=== PATIENT | male | born 1990 | race Caucasian/White ===

== ENCOUNTER 2019-06-08 20:53 | Emergency (ER) | payer SELFPAY ==
[~2019-06-08] VITALS: Ht 175.3 cm; Wt 65.0 kg
--- NOTE | 2019-06-08 21:03 | PHYS DOC ---
Past History Past Medical History: Sciatica Adult General Chief Complaint Chief Complaint: ".. I ve had back problems.. before .. when I was in the .... It is always here on the Rt... lower... same spot..but I ve been moving into a new place..and probably over did it... " HPI HPI Patient is a 29 year old male who presents with above hx and complaints right lower bar muscle spasms and pain. Patient has history of past sciatica on right. Patient has had problems with lower back pain since service. Patient has [place] [facility] with excessive lifting the last couple days. Patient has findings of increased pain with straight leg lift on right. Pain does seem to travel down right sciatic nerve . Patient moved to [facility] from [facility]. Patient denies any problems with defecation or urination. Patient denies any fever or chills. Patient denies any history cancer. Patient denies any immunosuppression. Patient denies any history of IV drug use. Patient normally follows at [facility]. His primary care is Dr.L Landry. Review of Systems Review of Systems Constitutional: Denies fever or chills [] Eyes: Denies change in visual acuity, redness, or eye pain [] HENT: Denies nasal congestion or sore throat [] Respiratory: Denies cough or shortness of breath [] Cardiovascular: No additional information not addressed in HPI [] GI: Denies abdominal pain, nausea, vomiting, bloody stools or diarrhea [] : Denies dysuria or hematuria [] Musculoskeletal: Complains of right lumbar back pain Integument: Denies rash or skin lesions [] Neurologic: Denies headache, focal weakness or sensory changes [] Endocrine: Denies polyuria or polydipsia [] All other systems were reviewed and found to be within normal limits, except as documented in this note. Family History Family History Noncontributory Current Medications Current Medications See nursing for home meds Allergies Allergies No known drug allergies Physical Exam Physical Exam Constitutional: Well developed, well nourished, no acute distress, non-toxic appearance. [] HENT: Normocephalic, atraumatic, bilateral external ears normal, oropharynx moist, no oral exudates, nose normal. [place] Eyes: PERRLA, EOMI, conjunctiva normal, no discharge. [] Neck: Normal range of motion, no tenderness, supple, no stridor. [] Cardiovascular:Heart rate regular rhythm, no murmur [] Lungs & Thorax: Bilateral breath sounds equal at apexes on auscultation [] Abdomen: Bowel sounds normal, soft, no tenderness, no masses, no pulsatile masses. No groin or saddle sensation loss. Circumcised male. Skin: Warm, dry, no erythema, no rash. [] Back: Right lumbar muscle spasm and tenderness, no midline tenderness on percussion, no CVA tenderness. [] Pain appears to follow sciatic roots on right. Extremities: No tenderness, no cyanosis, no clubbing, ROM intact, no edema. [] Neurologic: Alert and oriented X 3, normal motor function, normal sensory function, no focal deficits noted. []DTR +2 at patella. Psychologic: Affect anxious, judgement normal, mood normal. [] EKG EKG [] Radiology/Procedures Radiology/Procedures X-rays deferred at this time-per patient[] Course & Med Decision Making Course & Med Decision Making Pertinent Labs and Imaging studies reviewed. (See chart for details) Patient use ice packs as needed for the next 3 days. After 3 days if no reinjury may advance to moist heat. Patient take Tylenol and ibuprofen for pain. Patient take Flexeril 10 mg up 3 times a day for muscle spasms. Patient take Vicoprofen up to 4 times a day. Return of any concerns. Must follow-up primary care. Should limit lifting 20 pounds for the next several days. Impression: 1. Low back pain-sciatica 2. Over use/back strain [] Dragon Disclaimer Dragon Disclaimer This electronic medical record was generated, in whole or in part, using a voice recognition dictation system. Departure Departure: Disposition: 01 HOME/RESIDENCE PRIOR TO ADM Condition: STABLE Referrals: TRENA LANDRY MD (PCP) Scripts Cyclobenzaprine Hcl (CYCLOBENZAPRINE HCL) 10 Mg Tablet 10 MG PO TID PRN PRN for spasms, #30 TAB Prov: SHAILA HERNANDEZ MD 06/08/19 Hydrocodone/Ibuprofen (HYDROCODONE-IBUPROFEN 7.5-200 ) 1 Each Tablet 1 TAB PO PRN Q6HRS PRN for PAIN, #30 TAB 0 Refills Prov: SHAILA HERNANDEZ MD 06/08/19 Dragon Disclaimer This chart was dictated in whole or in part using Voice Recognition software in a busy, high-work load, and often noisy Emergency Department environment. It may contain unintended and wholly unrecognized errors or omissions. SHAILA HERNANDEZ MD Jun 08, 2019 21:03
[2019-06-08] MEDS ORDERED: CYCL-331 PO (22:37)
[2019-06-08] MEDS ORDERED: HYDR-1179 PO (22:37)
[2019-06-08] MEDS ORDERED: KETOROLAC 60 MG/2 ML VIAL. IM ONE ×2 (22:45→22:50)
[2019-06-08] MEDS ORDERED: MORPHINE SULFATE 10 MG/ML SYRINGE. SQ ONE (22:45)
[2019-06-08] MEDS ORDERED: ORPHENADRINE CITRATE 60 MG/2 ML VIAL. IM ONE (22:45)
[2019-06-08] MEDS ORDERED: ORPHENADRINE CITRATE 60 MG/2 ML VIAL. ONE (22:50)
[2019-06-08] MEDS ORDERED: MORPHINE SULFATE 10 MG/ML SYRINGE. ONE (22:51)
[2019-06-08 22:59] LABS: BARBITURATES NEG (NEG); BENZODIAZEPINES NEG (NEG); CANNABINOIDS NEG (NEG); COCAINE NEG (NEG); METHADONE NEG (NEG); OPIATES NEG (NEG); PHENCYCLIDINE NEG (NEG)
[2019-06-08 23:00] VITALS: BP 110/64
[2019-06-08 23:00] LABS: AMPHETAMINE/METHAMPHETAMINE NEG (NEG)
[2019-06-08 23:04] LABS: BACTERIA,URINE 0 /HPF (0-FEW); BILIRUBIN,URINE NEG (NEG); CLARITY,URINE CLEAR; COLOR,URINE YELLOW; GLUCOSE,URINE NEG (NEG); NITRITE,URINE NEG (NEG); RBC,URINE 0 /HPF (0-2); UROBILINOGEN,URINE 0.2 mg/dL (0.2 mg/dL); WBC,URINE 0 /HPF (0-4)
== END 2019-06-08 23:00 | disposition home or self-care (01) ==
LOC: ER 20:53
DX: M54.42 Lumbago with sciatica, left side (principal)
CPT/HCPCS: 36415; 80307; 81001; 96372; 99284; J1885; J2270; J2360

== ENCOUNTER 2019-06-22 22:41 | Emergency (ER) | payer BC ==
[~2019-06-22] VITALS: Ht 175.3 cm; Wt 65.0 kg
[~2019-06-22 22:41] MED LIST: CYCL-331 PO; HYDR-1179 PO
[2019-06-22 22:59] VITALS: BP 115/85
[2019-06-22] MEDS ORDERED: CYCL-331 PO (23:24)
[2019-06-22] MEDS ORDERED: HYDR-3165 PO (23:24)
[2019-06-22] MEDS ORDERED: PRED-220 PO (23:24)
--- NOTE | 2019-06-22 23:25 | PHYS DOC ---
Past History Past Medical History: Sciatica Additional Past Medical Histor: tinninitis; chronic back issues Past Surgical History: Other Additional Past Surgical Histo: laser eye surgery for glaucoma; rt shoulder; rt wrist Alcohol Use: Rarely Drug Use: None Adult General Chief Complaint Chief Complaint: BACK PAIN OR INJURY HPI HPI 29-year-old male returns emergency room with right lower back pain. 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 He does a lot of heavy lifting and twisting. He had an exceptionally hard day at work yesterday and believes that he tweaked something in his back. He has had tightness and pain since he got home after work. He was seen in this emergency room by my colleague 2 weeks ago for a similar complaint. Patient admits that he got better and then has reinjured himself. He states that he has made an appointment with his primary care physician for after the holiday. He denies any falls or direct trauma. He has had a history of low back pain from previous service. He denies numbness, tingling, altered sensation. No symptoms down his legs. Review of Systems Review of Systems Constitutional: Denies fever or chills [] Eyes: Denies change in visual acuity, redness, or eye pain [] HENT: Denies nasal congestion or sore throat [] Respiratory: Denies cough or shortness of breath [] Cardiovascular: No additional information not addressed in HPI [] GI: Denies abdominal pain, nausea, vomiting, bloody stools or diarrhea [] : Denies dysuria or hematuria [] Musculoskeletal: Right-sided low back pain[] Integument: Denies rash or skin lesions [] Neurologic: Denies headache, focal weakness or sensory changes [] Endocrine: Denies polyuria or polydipsia [] All other systems were reviewed and found to be within normal limits, except as documented in this note. Allergies Allergies Allergies Coded Allergies Type Severity Reaction Last Updated Verified No Known Drug Allergies 06/08/19 No Physical Exam Physical Exam Constitutional: Well developed, well nourished, no acute distress, non-toxic appearance. [] HENT: Normocephalic, atraumatic, bilateral external ears normal, oropharynx moist, no oral exudates, nose normal. [] Eyes: PERRLA, EOMI, conjunctiva normal, no discharge. [] Neck: Normal range of motion, no tenderness, supple, no stridor. [] Cardiovascular:Heart rate regular rhythm, no murmur [] Lungs & Thorax: Bilateral breath sounds clear to auscultation [] Abdomen: Bowel sounds normal, soft, no tenderness, no masses, no pulsatile masses. [] Skin: Warm, dry, no erythema, no rash. [] Back: Moderate to severe lumbar paraspinal muscle spasm on the right with mild to moderate tenderness to palpation.[] Extremities: No tenderness, no cyanosis, no clubbing, ROM intact, no edema. [] Neurologic: Alert and oriented X 3, normal motor function, normal sensory function, no focal deficits noted. [] Psychologic: Affect normal, judgement normal, mood normal. [] Current Patient Data Vital Signs Vital Signs Date Time Temp Pulse Resp B/P (MAP) Pulse Ox O2 Delivery O2 Flow Rate FiO2 06/22/19 22:59 97.9 80 18 97 Room Air EKG EKG [] Radiology/Procedures Radiology/Procedures [] Course & Med Decision Making Course & Med Decision Making Pertinent Labs and Imaging studies reviewed. (See chart for details) The patient does appear to be having significant spasms of his paraspinal muscles. I have looked him up in the database and he has had 3 prescriptions within the last couple of months. The patient admitted as such. I have stressed to him that the emergency room will not be able to give him medications like this in the future she needs to get these medications from one source, his primary care physician. Patient states verbal understanding. I will discharge him with prednisone for 3 days, Flexeril, and 10 [place] 5/325. He is stable for discharge at this time. [] Dragon Disclaimer Dragon Disclaimer This electronic medical record was generated, in whole or in part, using a voice recognition dictation system. Departure Departure: Impression: Primary Impression: Lumbar back sprain Disposition: 01 HOME, SELF-CARE Condition: STABLE Referrals: TRENA LOMBARDI MD (PCP) Patient Instructions: Low Back Strain with [facility] Scripts Prednisone (PREDNISONE) 10 Mg Tablet 50 MG PO DAILY for low back pain for 3 Days, #15 TAB Prov: VICTOR MANUEL MITCHELL DO 06/22/19 Hydrocodone Bit/Acetaminophen (NORCO 5-325 TABLET) 1 Each Tablet 1 TAB PO PRN Q6HRS PRN for PAIN, #10 TAB 0 Refills Prov: VICTOR MANUEL MITCHELL DO 06/22/19 Cyclobenzaprine Hcl (CYCLOBENZAPRINE HCL) 10 Mg Tablet 1 TAB PO TID PRN for MUSCLE SPASMS, #30 TAB Prov: VICTOR MANUEL MITCHELL DO 06/22/19 Problem Qualifiers Primary Impression: Lumbar back sprain Encounter type: initial encounter Qualified Codes: S33.5XXA - Sprain of ligaments of lumbar spine, initial encounter VICTOR MANUEL MITCHELL DO Jun 22, 2019 23:25
[2019-06-22] MEDS ORDERED: CYCLOBENZAPRINE 10 MG TABLET. ONE (23:27)
[2019-06-22] MEDS ORDERED: predniSONE 20 MG TABLET ONE (23:27)
[2019-06-22] MEDS ORDERED: predniSONE 20 MG TABLET PO ONE (23:30)
[2019-06-22] MEDS ORDERED: CYCLOBENZAPRINE 10 MG TABLET. PO ONE (23:30)
== END 2019-06-22 23:32 | disposition home or self-care (01) ==
LOC: ER 22:41
DX: S33.5XXA Sprain of ligaments of lumbar spine, initial encounter (principal); X50.9XXA Other and unspecified overexertion or strenuous movements or postures, initial encounter; Y93.89 Activity, other specified; Y92.89 Other specified places as the place of occurrence of the external cause; Y99.0 Civilian activity done for income or pay
CPT/HCPCS: 99283; J7512

== ENCOUNTER 2019-07-27 19:54 | Emergency (ER) | payer SELFPAY ==
[~2019-07-27] VITALS: Ht 175.3 cm; Wt 67.0 kg
[~2019-07-27 19:54] MED LIST changes: +HYDR-3165 PO; +PRED-220 PO
--- NOTE | 2019-07-27 20:06 | PHYS DOC ---
Past History Past Medical History: Sciatica Additional Past Medical Histor: tinninitis; chronic back issues Past Surgical History: Other Additional Past Surgical Histo: laser eye surgery for glaucoma; rt shoulder; rt wrist Alcohol Use: Rarely Drug Use: None Adult General Chief Complaint Chief Complaint: BACK PAIN OR INJURY".. I was changing a tire on my SUV yesterday and I think I twisted my back... Here on the right lower lumbar area HPI HPI Patient is a 29 year old male who presents with above hx and complaints of lumbar back pain. Patient denies any history immunosuppression. Patient denies any history of problems with urination or defecation. No history of cancer. History of fevers. Pain started acutely after changing tires on his SUV Patient normally [facility]. Pain is exacerbated by straight leg lift on right. DTRs are +2 patella. Review of Systems Review of Systems Constitutional: Denies fever or chills [] Eyes: Denies change in visual acuity, redness, or eye pain [] HENT: Denies nasal congestion or sore throat [] Respiratory: Denies cough or shortness of breath [] Cardiovascular: No additional information not addressed in HPI [] GI: Denies abdominal pain, nausea, vomiting, bloody stools or diarrhea [] : Denies dysuria or hematuria [] Musculoskeletal: Complaints of lumbar sacral back pain Integument: Denies rash or skin lesions [] Neurologic: Denies headache, focal weakness or sensory changes [] Endocrine: Denies polyuria or polydipsia [] All other systems were reviewed and found to be within normal limits, except as documented in this note. Family History Family History Noncontributory Current Medications Current Medications See nursing for home meds Allergies Allergies Allergies Coded Allergies Type Severity Reaction Last Updated Verified No Known Drug Allergies 06/08/19 No Physical Exam Physical Exam Constitutional: Well developed, well nourished, in moderate acute distress, non- toxic appearance. [] HENT: Normocephalic, atraumatic, bilateral external ears normal, oropharynx moist, no oral exudates, nose normal. [] Eyes: PERRLA, EOMI, conjunctiva normal, no discharge. [] Neck: Normal range of motion, no tenderness, supple, no stridor. [] Cardiovascular:Heart rate regular rhythm, no murmur [] Lungs & Thorax: Bilateral breath sounds clear to auscultation [] Abdomen: Bowel sounds normal, soft, no tenderness, no masses, no pulsatile masses. [] Findings rectal exam but no reports of suicidal loss in the groin. Skin: Warm, dry, no erythema, no rash. [] Back: Marked lumbar sacral muscle spasm localized more to the right. No midline tenderness on percussion. Straight leg lift on right exacerbates pain. Pain seems to follow the course of the sciatic nerve. Extremities: No tenderness, no cyanosis, no clubbing, ROM intact, no edema. [] No cording noted in legs. Neurologic: Alert and oriented X 3, normal motor function, normal sensory function, no focal deficits noted. []DTRs +2 at patella. Is ambulatory. Psychologic: Affect anxious, judgement normal, mood normal. [] EKG EKG [] Radiology/Procedures Radiology/Procedures [][address] [address] IMAGING REPORT Signed PATIENT: ENRIQUE MARS ACCOUNT: [id number] : 1990 LOCATION: ER AGE: 29 SEX: M EXAM STATUS: REG ER ORD. PHYSICIAN: SHAILA HERNANDEZ MD REASON: pain - rt sciatica, SPASMS PROCEDURE: CT LUMBAR SPINE WO CONTRAST CT LUMBAR SPINE WO CONTRAST Date: 07/27/2019 8:31 PM Indication: Spasms, right sciatica, pain Comparison: None. Technique: Helical CT images of the lumbar spine were obtained without contrast. Coronal and sagittal reformatted images were also performed. One or more of the following dose reduction techniques were utilized: Automated exposure control (AEC), Adjustment of mA and/or kV according to patient size, Use of iterative reconstruction technique such as ASiR, CT scan done according to ALARA and image gently/image wisely. Findings: The lumbar spine is normally aligned. No acute fracture. Vertebral body heights are maintained without compression deformity. Multilevel minimal disc bulges. No aggressive lytic or blastic osseous lesion. No significant spinal canal stenosis or neuroforaminal narrowing. No soft tissue abnormality within the visualized abdomen or pelvis. The visualized abdominal aorta is normal caliber. IMPRESSION: 1. No acute osseous abnormality of the lumbar spine. 2. Few mild disc bulges without significant spinal canal stenosis or neural foraminal narrowing. If radiculopathy persists, MRI could be considered. Electronically signed by: Ivan Thomason MD (07/27/2019 9:12 PM) [facility] DICTATED AND SIGNED BY: IVAN THOMASON MD DATE: 07/27/192111 CC: SHAILA HERNANDEZ MD; TRENA LOMBARDI MD ~ Course & Med Decision Making Course & Med Decision Making Pertinent Labs and Imaging studies reviewed. (See chart for details) Patient use ice packs as needed for the next 3 days. No moist heat until after 3 days. An no reinjury. Take Tylenol and ibuprofen for pain. For marked pain may take Vicoprofen up 4 times a day. Take Flexeril 10 mg up to 3 times a day for muscle spasms. If no improvement of back pain may need MRI. Follow-up with PA. Return if any concerns. Impression- 1. Muscle strain 2. Sciatica 3. Mild disc bulging [] Dragon Disclaimer Dragon Disclaimer This electronic medical record was generated, in whole or in part, using a voice recognition dictation system. Departure Departure: Disposition: 01 HOME/RESIDENCE PRIOR TO ADM Condition: STABLE Referrals: TRENA LOMBARDI MD (PCP) Scripts Cyclobenzaprine Hcl (CYCLOBENZAPRINE HCL) 10 Mg Tablet 10 MG PO tidprn for spasms, #30 TAB Prov: SHAILA HERNANDEZ MD 07/27/19 Hydrocodone/Ibuprofen (HYDROCODONE-IBUPROFEN 7.5-200 ) 1 Each Tablet 1 TAB PO PRN Q6HRS PRN for PAIN, #30 TAB 0 Refills Prov: SHAILA HERNANDEZ MD 07/27/19 Dragon Disclaimer This chart was dictated in whole or in part using Voice Recognition software in a busy, high-work load, and often noisy Emergency Department environment. It may contain unintended and wholly unrecognized errors or omissions. SHAILA HERNANDEZ MD Jul 27, 2019 20:06
[2019-07-27] MEDS ORDERED: HYDR-1179 PO (20:29)
[2019-07-27] MEDS ORDERED: CYCL-331 PO (20:29)
[2019-07-27] MEDS ORDERED: KETOROLAC 60 MG/2 ML VIAL. IM ONE (21:00)
[2019-07-27] MEDS ORDERED: ORPHENADRINE CITRATE 60 MG/2 ML VIAL. IM ONE (21:00)
[2019-07-27] MEDS ORDERED: methylPREDNISolone ACETATE 40 MG/ML VIAL. IM ONE (21:00)
--- NOTE | 2019-07-27 21:15 | RAD ---
CT LUMBAR SPINE WO CONTRAST Date: 07/27/2019 8:31 PM Indication: Spasms, right sciatica, pain Comparison: None. Technique: Helical CT images of the lumbar spine were obtained without contrast. Coronal and sagittal reformatted images were also performed. One or more of the following dose reduction techniques were utilized: Automated exposure control (AEC), Adjustment of mA and/or kV according to patient size, Use of iterative reconstruction technique such as ASiR, CT scan done according to ALARA and image gently/image wisely. Findings: The lumbar spine is normally aligned. No acute fracture. Vertebral body heights are maintained without compression deformity. Multilevel minimal disc bulges. No aggressive lytic or blastic osseous lesion. No significant spinal canal stenosis or neuroforaminal narrowing. No soft tissue abnormality within the visualized abdomen or pelvis. The visualized abdominal aorta is normal caliber. IMPRESSION: 1. No acute osseous abnormality of the lumbar spine. 2. Few mild disc bulges without significant spinal canal stenosis or neural foraminal narrowing. If radiculopathy persists, MRI could be considered. Electronically signed by: Pascual Thomason MD (07/27/2019 9:12 PM) [facility]
[2019-07-27 21:50] VITALS: BP 119/81
[2019-07-27 22:16] LABS: BILIRUBIN,URINE NEG (NEG); CLARITY,URINE CLEAR; COLOR,URINE YELLOW; GLUCOSE,URINE NEG (NEG); NITRITE,URINE NEG (NEG); UROBILINOGEN,URINE 0.2 mg/dL (0.2 mg/dL)
[2019-07-27 22:17] LABS: BACTERIA,URINE 0 /HPF (0-FEW); RBC,URINE 0 /HPF (0-2); SQUAMOUS EPITHELIAL CELL,UR OCC /LPF; WBC,URINE OCC /HPF (0-4)
== END 2019-07-27 21:51 | disposition home or self-care (01) ==
LOC: ER 19:54
DX: S39.012A Strain of muscle, fascia and tendon of lower back, initial encounter (principal); G89.29 Other chronic pain; X50.1XXA Overexertion from prolonged static or awkward postures, initial encounter; Y93.89 Activity, other specified; Y92.89 Other specified places as the place of occurrence of the external cause; Y99.8 Other external cause status
CPT/HCPCS: 72131; 81001; 96372; 99285; J1030; J1885; J2360

== ENCOUNTER 2019-08-17 20:58 | Emergency (ER) | payer SELFPAY ==
[~2019-08-17] VITALS: Ht 175.3 cm; Wt 67.0 kg
[2019-08-17 21:00] VITALS: BP 119/81
--- NOTE | 2019-08-17 22:21 | PHYS DOC ---
Past History Past Medical History: Glaucoma, Sciatica Additional Past Medical Histor: tinninitis; chronic back issues Past Surgical History: Other Additional Past Surgical Histo: laser eye surgery for glaucoma; rt shoulder; rt wrist Alcohol Use: Rarely Drug Use: None Adult General Chief Complaint Chief Complaint: BACK PAIN OR INJURY [facility] HPI 29-year-old male presents with right-sided low back pain. The patient was helping a friend move was lifting lots of heavy things today. He started to have pain this morning and took some ibuprofen. He took 2 more ibuprofen early afternoon. The pain is continued to increase. It is difficult to stand up from a chair and walk without pain. He made an appointment with his PCP for next week, but the pain is too great and he does not believe he'll be able to sleep. No history of significant tach injuries or surgery in the past. He denies any other complaints at this time. Review of Systems Review of Systems Constitutional: Denies fever or chills [] Eyes: Denies change in visual acuity, redness, or eye pain [] HENT: Denies nasal congestion or sore throat [] Respiratory: Denies cough or shortness of breath [] Cardiovascular: No additional information not addressed in HPI [] GI: Denies abdominal pain, nausea, vomiting, bloody stools or diarrhea [] : Denies dysuria or hematuria [] Musculoskeletal: Right-sided low back pain[] Integument: Denies rash or skin lesions [] Neurologic: Denies headache, focal weakness or sensory changes [] Endocrine: Denies polyuria or polydipsia [] All other systems were reviewed and found to be within normal limits, except as documented in this note. Allergies Allergies Allergies Coded Allergies Type Severity Reaction Last Updated Verified No Known Drug Allergies 06/08/19 No Physical Exam Physical Exam Constitutional: Well developed, well nourished, no acute distress, non-toxic appearance. [] HENT: Normocephalic, atraumatic, bilateral external ears normal, oropharynx moist, no oral exudates, nose normal. [] Eyes: PERRLA, EOMI, conjunctiva normal, no discharge. [] Neck: Normal range of motion, no tenderness, supple, no stridor. [] Cardiovascular:Heart rate regular rhythm, no murmur [] Lungs & Thorax: Bilateral breath sounds clear to auscultation [] Abdomen: Bowel sounds normal, soft, no tenderness, no masses, no pulsatile masses. [] Skin: Warm, dry, no erythema, no rash. [] Back:) Lumbar paraspinal muscle tenderness on the right with spasm. Bony tenderness.[] Extremities: No tenderness, no cyanosis, no clubbing, ROM intact, no edema. [] Neurologic: Alert and oriented X 3, normal motor function, normal sensory function, no focal deficits noted. [] Psychologic: Affect normal, judgement normal, mood normal. [] EKG EKG [] Radiology/Procedures Radiology/Procedures [] Course & Med Decision Making Course & Med Decision Making Pertinent Labs and Imaging studies reviewed. (See chart for details) I believe the patient is has a lumbar muscle strain. I will treat him with prednisone, Flexeril, and a short course of [place]. He is stable for discharge at this time. [] Dragon Disclaimer Dragon Disclaimer This electronic medical record was generated, in whole or in part, using a voice recognition dictation system. Departure Departure: Impression: Primary Impression: Lumbar strain Disposition: HOME, SELF-CARE Condition: STABLE Referrals: TRENA LOMBARDI MD (PCP) Scripts Hydrocodone Bit/Acetaminophen (NORCO 5-325 TABLET) 1 Each Tablet 1 TAB PO PRN Q6HRS PRN for PAIN, #10 TAB 0 Refills Prov: VICTOR MANUEL MITCHELL DO 08/17/19 Cyclobenzaprine Hcl (CYCLOBENZAPRINE HCL) 10 Mg Tablet 1 TAB PO TID PRN for MUSCLE SPASMS, #30 TAB Prov: VICTOR MANUEL MITCHELL DO 08/17/19 Prednisone (PREDNISONE) 50 Mg Tablet 1 TAB PO DAILY for back strain for 3 Days, #3 TAB Prov: VICTOR MANUEL MITCHELL DO 08/17/19 Problem Qualifiers Primary Impression: Lumbar strain Encounter type: initial encounter Qualified Codes: S39.012A - Strain of muscle, fascia and tendon of lower back, initial encounter VICTOR MANUEL MITCHELL DO Aug 17, 2019 22:21
[2019-08-17] MEDS ORDERED: HYDR-3165 PO (22:32)
[2019-08-17] MEDS ORDERED: CYCL-331 PO (22:32)
[2019-08-17] MEDS ORDERED: PRED50TA PO (22:32)
== END 2019-08-17 22:50 | disposition home or self-care (01) ==
LOC: ER 20:58
DX: S39.012A Strain of muscle, fascia and tendon of lower back, initial encounter (principal); X50.9XXA Other and unspecified overexertion or strenuous movements or postures, initial encounter; Y93.89 Activity, other specified; Y92.89 Other specified places as the place of occurrence of the external cause; Y99.8 Other external cause status
CPT/HCPCS: 99283

== ENCOUNTER 2019-08-25 00:46 | Emergency (ER) | payer SELFPAY ==
[~2019-08-25] VITALS: Ht 175.3 cm; Wt 68.0 kg
[~2019-08-25 00:46] MED LIST changes: +PRED50TA PO
[2019-08-25 00:55] VITALS: BP 142/90
[2019-08-25] MEDS ORDERED: PRED20TA PO (01:03)
[2019-08-25] MEDS ORDERED: HYDR-3165 PO (01:03)
[2019-08-25] MEDS ORDERED: ORPH-16 PO (01:03)
--- NOTE | 2019-08-25 01:03 | PHYS DOC ---
Past History Past Medical History: Glaucoma, Sciatica Additional Past Medical Histor: tinninitis; chronic back issues Past Surgical History: Other Additional Past Surgical Histo: laser eye surgery for glaucoma; rt shoulder; rt wrist Alcohol Use: Rarely Drug Use: None Adult General Chief Complaint Chief Complaint: BACK PAIN OR INJURY HPI HPI 29-year-old male presents with report of "throwing his back out "yesterday after slipping on grass while working yesterday. 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 Reports slipped on some grass and ended up coming down twisting his back. Reports history of prior back pain. Patient has been seen multiple times for similar in the ER. Patient reports he had an appointment to see his PCP, but ended up being unable to follow-up. Denies any loss of bowel or bladder. Denies fever or chills. Denies dysuria or hematuria. Denies rash. Review of Systems Review of Systems Constitutional: Denies fever or chills Eyes: Denies redness or eye pain HENT: Denies nasal congestion or sore throat Respiratory: Denies cough or shortness of breath Cardiovascular: Denies chest pain or palpitations GI: Denies abdominal pain, nausea, or vomiting : Denies dysuria or hematuria Musculoskeletal: Reports low back pain; denies joint pain Integument: Denies rash or skin lesions Neurologic: Denies headache, focal weakness or sensory changes; denies loss of bowel or bladder Complete systems were reviewed and found to be within normal limits, except as documented in this note. Allergies Allergies Allergies Coded Allergies Type Severity Reaction Last Updated Verified No Known Drug Allergies 06/08/19 No Physical Exam Physical Exam Constitutional: Well developed, well nourished, no acute distress, non-toxic appearance HENT: Normocephalic, atraumatic, oropharynx moist Eyes: Conjunctiva normal, no discharge Neck: Normal range of motion, no tenderness, supple Cardiovascular: Heart rate normal, regular rhythm Lungs & Thorax: Bilateral breath sounds clear to auscultation, no wheezing Abdomen: Soft, no tenderness; pelvis stable and nontender Skin: Warm, dry, no erythema, no rash Back: No midline tenderness, right lobe lobar paraspinal tenderness on palpation no CVA tenderness Extremities: No tenderness, ROM intact, no edema Neurologic: Alert and oriented X 3, no focal deficits noted Psychologic: Affect normal, judgment normal EKG EKG [] Radiology/Procedures Radiology/Procedures [] Course & Med Decision Making Course & Med Decision Making Patient presents with report of acute on chronic low back pain. Denies loss of bowel or bladder. No midline bony tenderness appreciated. Symptomatic treatment provided with IM ketorolac and oral dexamethasone. Patient stable for discharge with outpatient follow-up with PCP/pain management. Pain management referral provided. Discussed findings and plan with patient, who acknowledges understanding and agreement. Dragon Disclaimer Dragon Disclaimer This electronic medical record was generated, in whole or in part, using a voice recognition dictation system. Departure Departure: Impression: Primary Impression: Acute exacerbation of chronic low back pain Disposition: HOME, SELF-CARE Condition: STABLE Referrals: TRENA LOMBARDI MD (PCP) Patient Instructions: Back Pain, Adult, [id number], Chronic Back Pain Additional Instructions: Call Dr. Sandip Gregory (Pain management) Pain Medicine- [place] [address], [address] [place] [address] Scripts Prednisone (PREDNISONE) 20 Mg Tablet 2 TAB PO DAILY for Back pain, #8 TAB Start this prescription tomorrow, Monday08/26/2019 Prov: ANGELINA VIVAR DO 08/25/19 Hydrocodone Bit/Acetaminophen (NORCO 5-325 TABLET) 1 Each Tablet 0.5-1 TAB PO Q6HRS PRN for PAIN, #8 TAB Prov: ANGELINA VIVAR DO 08/25/19 Orphenadrine Citrate (ORPHENADRINE CITRATE) 100 Mg Tablet.er 1 TAB PO BID PRN for MUSCLE PAIN, #14 TAB 0 Refills Prov: ANGELINA VIVAR DO 08/25/19 ANGELINA VIVAR DO Aug 25, 2019 01:03
[2019-08-25] MEDS ORDERED: KETOROLAC 30 MG/ML VIAL. IM ONE (01:30)
[2019-08-25] MEDS ORDERED: DEXAMETHASONE 4 MG TABLET PO ONE (01:30)
== END 2019-08-25 01:31 | disposition home or self-care (01) ==
LOC: ER 00:46
DX: G89.29 Other chronic pain (principal); M54.5 Low back pain
CPT/HCPCS: 96372; 99283; J1885; J8540

== ENCOUNTER 2019-09-01 00:26 | Emergency (ER) | payer SELFPAY ==
[~2019-09-01] VITALS: Ht 175.3 cm; Wt 68.3 kg
[2019-09-01 00:26] VITALS: BP 119/77
[~2019-09-01 00:26] MED LIST changes: +ORPH-16 PO; +PRED20TA PO
[2019-09-01] MEDS ORDERED: NAPR375T5 PO (00:39)
[2019-09-01] MEDS ORDERED: LIDO700A21 TP (00:39)
[2019-09-01] MEDS ORDERED: ORPH-16 PO (00:39)
--- NOTE | 2019-09-01 00:39 | PHYS DOC ---
Past History Past Medical History: Glaucoma Additional Past Medical Histor: chronic back, shoulder, and wrist pain, Past Surgical History: Other Additional Past Surgical Histo: laser eye for glaucoma Alcohol Use: Rarely Drug Use: None Adult General Chief Complaint Chief Complaint: BACK PAIN OR INJURY HPI HPI 29-year-old male presents with report of "throwing his back out " today after helping family move. Denies loss of bowel/bladder. Patient with history of chronic back pain for which patient has been seen multiple times in ED for same. Denies hematuria or dysuria. Denies rash. Reports his PCP cancelled his appointment on him. Reports he has not yet called pain management for follow- up. Review of Systems Review of Systems Constitutional: Denies fever or chills Eyes: Denies redness or eye pain HENT: Denies nasal congestion or sore throat Respiratory: Denies cough or shortness of breath Cardiovascular: Denies chest pain or palpitations GI: Denies abdominal pain, nausea, or vomiting : Denies dysuria or hematuria Musculoskeletal: Reports low back pain; denies joint pain Integument: Denies rash or skin lesions Neurologic: Denies headache, focal weakness or sensory changes; denies loss of bowel or bladder Complete systems were reviewed and found to be within normal limits, except as documented in this note. Allergies Allergies Allergies Coded Allergies Type Severity Reaction Last Updated Verified No Known Drug Allergies 06/08/19 No Physical Exam Physical Exam Constitutional: Well developed, well nourished, no acute distress, non-toxic appearance HENT: Normocephalic, atraumatic, oropharynx moist Eyes: Conjunctiva normal, no discharge Neck: Normal range of motion, no tenderness, supple Cardiovascular: Heart rate normal, regular rhythm Lungs & Thorax: Bilateral breath sounds clear to auscultation, no wheezing Skin: Warm, dry, no erythema, no rash Back: No midline tenderness, right lower lumbar paraspinal tenderness on palpation, no CVA tenderness Extremities: No tenderness, ROM intact, no edema Neurologic: Alert and oriented X 3, no focal deficits noted Psychologic: Affect normal, judgment normal EKG EKG [] Radiology/Procedures Radiology/Procedures [] Course & Med Decision Making Course & Med Decision Making Patient presents with report of chronic low back pain after helping move today. Hx of multiple recent ED visits for same. Denies loss of bowel or bladder. No midline bony tenderness appreciated. Symptomatic treatment provided with IM ketorolac. [facility] report obtained with findings of 30 tabs of Gallitzin 5/325mg provided by different providers since 08/18/19. Last Rx written by myself from 08/25/19. Patient advised would be unable to given Rx for any further controlled medications. Rx for muscle relaxer, naproxen and lidoderm patches provided. Patient stable for discharge with outpatient follow-up with PCP/pain management. Pain management referral provided again. Discussed findings and plan with patient, who acknowledges understanding and agreement. Dragon Disclaimer Dragon Disclaimer This electronic medical record was generated, in whole or in part, using a voice recognition dictation system. Departure Departure: Impression: Primary Impression: Chronic back pain Disposition: HOME, SELF-CARE Condition: STABLE Referrals: TRENA LOMBARDI MD (PCP) Patient Instructions: Chronic Back Pain, Chronic Pain Management Additional Instructions: Pain Medicine- [address], [address] [place] [address] Scripts Naproxen (NAPROXEN) 375 Mg Tablet. 375 MG PO TID PRN for PAIN, #30 TAB Prov: ANGELINA VIVAR DO 09/01/19 Orphenadrine Citrate (ORPHENADRINE CITRATE) 100 Mg Tablet.er 1 TAB PO BID PRN for MUSCLE PAIN, #10 TAB 0 Refills Prov: ANGELINA VIVAR DO 09/01/19 Lidocaine (Lidocaine PATCH ) 1 Each Adh..patch 1 EACH TP DAILY PRN for PAIN, #10 PATCH REMOVE AFTER 12 HOURS Prov: ANGELINA VIVAR DO 09/01/19 Problem Qualifiers Primary Impression: Chronic back pain Back pain location: low back pain Back pain laterality: bilateral Sciatic a presence: without sciatica Qualified Codes: M54.5 - Low back pain; G89.29 - Other chronic pain ANGELINA VIVAR DO Sep 01, 2019 00:39
[2019-09-01] MEDS ORDERED: KETOROLAC 30 MG/ML VIAL. ONE (00:42)
[2019-09-01] MEDS ORDERED: KETOROLAC 30 MG/ML VIAL. IM ONE (00:45)
== END 2019-09-01 00:46 | disposition home or self-care (01) ==
LOC: ER 00:26
DX: G89.29 Other chronic pain (principal); M54.5 Low back pain
CPT/HCPCS: 96372; 99283; J1885

== ENCOUNTER 2019-09-08 01:32 | Emergency (ER) | payer SELFPAY ==
[~2019-09-08] VITALS: Ht 175.3 cm; Wt 68.3 kg
[~2019-09-08 01:32] MED LIST changes: +LIDO700A21 TP; +NAPR375T5 PO
[2019-09-08 01:33] VITALS: BP 114/85
--- NOTE | 2019-09-08 01:58 | PHYS DOC ---
Past History Past Medical History: Glaucoma Additional Past Medical Histor: chronic back, shoulder, and wrist pain, Past Surgical History: Other Additional Past Surgical Histo: laser eye for glaucoma Alcohol Use: Rarely Drug Use: None Adult General Chief Complaint Chief Complaint: BACK INJURY HPI HPI 29-year-old male presents with right-sided low back pain. The patient's been seen in this emergency room several times for low back pain. 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 He now has an exacerbation of his right low back pain. He is not sure exactly what caused it. He has an appointment this week for injections for his chronic pain. He has no other complaints at this time. Review of Systems Review of Systems Constitutional: Denies fever or chills [] Eyes: Denies change in visual acuity, redness, or eye pain [] HENT: Denies nasal congestion or sore throat [] Respiratory: Denies cough or shortness of breath [] Cardiovascular: No additional information not addressed in HPI [] GI: Denies abdominal pain, nausea, vomiting, bloody stools or diarrhea [] : Denies dysuria or hematuria [] Musculoskeletal: Right-sided low back pain[] Integument: Denies rash or skin lesions [] Neurologic: Denies headache, focal weakness or sensory changes [] Endocrine: Denies polyuria or polydipsia [] All other systems were reviewed and found to be within normal limits, except as documented in this note. Allergies Allergies Allergies Coded Allergies Type Severity Reaction Last Updated Verified No Known Drug Allergies 06/08/19 No Physical Exam Physical Exam Constitutional: Well developed, well nourished, no acute distress, non-toxic appearance. [] HENT: Normocephalic, atraumatic, bilateral external ears normal, oropharynx moist, no oral exudates, nose normal. [] Eyes: PERRLA, EOMI, conjunctiva normal, no discharge. [] Neck: Normal range of motion, no tenderness, supple, no stridor. [] Cardiovascular:Heart rate regular rhythm, no murmur [] Lungs & Thorax: Bilateral breath sounds clear to auscultation [] Abdomen: Bowel sounds normal, soft, no tenderness, no masses, no pulsatile masses. [] Skin: Warm, dry, no erythema, no rash. [] Back: Tenderness of the right paraspinal lumbar[] Extremities: No tenderness, no cyanosis, no clubbing, ROM intact, no edema. [] Neurologic: Alert and oriented X 3, normal motor function, normal sensory function, no focal deficits noted. [] Psychologic: Affect normal, judgement normal, mood normal. [] EKG EKG [] Radiology/Procedures Radiology/Procedures [] Course & Med Decision Making Course & Med Decision Making Pertinent Labs and Imaging studies reviewed. (See chart for details) The patient is at 8 pain medication prescription since April 2019. His most recent was 2 weeks ago. I told patient that this is not how he can manage his chronic low back pain. He must see a consistent person. I have given Toradol injection and Solu-Medrol injection. He declined these and will go home and use ice and take ibuprofen. He is stable for discharge at this time. [] Dragon Disclaimer Dragon Disclaimer This electronic medical record was generated, in whole or in part, using a voice recognition dictation system. Departure Departure: Impression: Primary Impression: Chronic low back pain Disposition: HOME, SELF-CARE Condition: STABLE Patient Instructions: Low Back Strain with [facility] VICTOR MANUEL MITCHELL DO Sep 08, 2019 01:58
== END 2019-09-08 02:17 | disposition home or self-care (01) ==
LOC: ER 01:32
DX: G89.29 Other chronic pain (principal); M54.5 Low back pain
CPT/HCPCS: 99281; 99282

== ENCOUNTER 2019-11-04 00:11 | Emergency (ER) | payer SELFPAY ==
[~2019-11-04] VITALS: Ht 175.3 cm; Wt 63.4 kg
--- NOTE | 2019-11-04 00:20 | PHYS DOC ---
Past History Past Medical History: Glaucoma Additional Past Medical Histor: chronic back, shoulder, and wrist pain, Past Surgical History: Appendectomy, Other Additional Past Surgical Histo: laser eye for glaucoma Alcohol Use: Rarely Drug Use: None General Adult HPI: HPI: ".. I hurting all over my abdomen.. I had surgery for appendix on last Monday at [facility].... Dr. Fenton did it.. but I have run out of my pain meds... I have been eating today.. I had fried chicken earlier and crab rangoon..at about 7.. pm.. but I a really hurting now...." Patient is a 29 year old male who presents with above hx and complaints of generalized abdomen pain. Pt. reportedly had appendix surgery on MondayOctober 26. at [facility] by Dr. Boyce. Pt. states he was not given enough pain meds. Pt. lives in [place]. Patient denies any intake of bad food. No recent travel. No specific ill contacts. Patient denies any history of immunosuppression. Patient does have history of chronic low back pain and has many ED visits for this diagnosis. Patient current pain is rated 10 out of 10 appears to be somewhat leon-umbilicus. Patient has been passing gas. Patient suture lines appear to be stable. No obvious inflammation at sites of incisions. Patient states pain has been worse since he ate the [place] food tonight. Patient has not made a follow-up appointment as directed with Dr. Boyce on his discharge from [facility]. Review of Systems: Review of Systems: Constitutional: Denies fever or chills Eyes: Denies change in visual acuity HENT: Denies nasal congestion or sore throat Respiratory: Denies cough or shortness of breath Cardiovascular: Denies chest pain or edema GI: Complaints of abdominal pain, nausea,. Denies vomiting, bloody stools or diarrhea : Denies dysuria Musculoskeletal: Denies back pain or joint pain Integument: Denies rash Neurologic: Denies headache, focal weakness or sensory changes Endocrine: Denies polyuria or polydipsia Lymphatic: Denies swollen glands Psychiatric: Denies depression or anxiety Heart Score: Risk Factors: Risk Factors: DM, Current or recent (<one month) smoker, HTN, HLP, family history of CAD, obesity. Risk Scores: Score 0 - 3: 2.5% MACE over next 6 weeks - Discharge Home Score 4 - 6: 20.3% MACE over next 6 weeks - Admit for Clinical Observation Score 7 - 10: 72.7% MACE over next 6 weeks - Early Invasive Strategies Family History: Family History: Noncontributory Current Medications: Current Meds: See nursing for home meds Allergies: Allergies: Allergies Coded Allergies Type Severity Reaction Last Updated Verified No Known Drug Allergies 06/08/19 No Physical Exam: PE: Constitutional: no acute distress, non-toxic appearance. [] HENT: Normocephalic, atraumatic, bilateral external ears normal, oropharynx moist, no oral exudates, nose normal. [] Eyes: PERRLA, EOMI, conjunctiva normal, no discharge. [] Neck: Normal range of motion, no tenderness, supple, no stridor. [] Cardiovascular:Heart rate regular rhythm, no murmur [] Lungs & Thorax: Bilateral breath sounds equal apex with scattered wheezes on auscultation [] Abdomen: Bowel sounds normal, soft, generalized tenderness, no masses, no pulsatile masses. [] Suture lines appear to be stable. No focal areas rebound. Skin: Warm, dry, no erythema, no rash. [] Back: No tenderness, no CVA tenderness. [] Extremities: No tenderness, no cyanosis, no clubbing, ROM intact, no edema. [] No Trousseau sign. Neurologic: Alert and oriented X 3, normal motor function, normal sensory function, no focal deficits noted. [] Psychologic: Affect anxiousl, judgement normal, mood normal. [] EKG: EKG: My interpretation of EKG shows a sinus rhythm at 83 bpm. No findings acute STEMI or contralateral changes. Essentially normal EKG. [] Radiology/Procedures: Radiology/Procedures: [address] [address] IMAGING REPORT Signed PATIENT: ENRIQUE MARS ACCOUNT: [id number] : 1990 LOCATION: ER AGE: 29 SEX: M EXAM STATUS: REG ER ORD. PHYSICIAN: SHAILA HERNANDEZ MD REASON: pain, appendix surgery last monday, [id number], 75ml & [id number], 30ml PROCEDURE: CT ABD PELV W/ORAL&IV CONTRAST CT SCAN OF THE ABDOMEN AND PELVIS WITH IV CONTRAST. History: Comparison:None. Procedure: Contiguous axial images of the abdomen and pelvis were performed after the administration of 75 cc of Omni 300 IV contrast. Oral contrast: Yes. Findings: There is density with stranding along the paracolic gutter on the right and there is a small amount of dense fluid posteriorly in the pelvis. The curvilinear opacity posterior to the cecum is presumably a suture line from the appendectomy. The gallbladder is collapsed and not well evaluated. Liver: Unremarkable Spleen: Unremarkable Pancreas: Unremarkable Adrenal Glands: Unremarkable Kidneys: Unremarkable There is no mass or lymphadenopathy. There is no free air. There is no free fluid. The urinary bladder is partially collapsed. There is mild wall thickening. Impression: 1. Mild wall thickening of the urinary bladder is likely hypertrophy. 2. There is a small amount of blood in the pelvis posteriorly and there is a small amount of blood along the paracolic gutter on the right with mild surrounding inflammation. There is no focal abscess. RS Compliance Statement: One or more of the following individualized dose reduction techniques were utilized for this examination: 1. Automated exposure control 2. Adjustment of the mA and/or kV according to patient size 3. Use of iterative reconstruction technique Electronically signed by: Cady Puente III, MD (11/04/2019 2:58 AM) [id number] DICTATED AND SIGNED BY: CADY PUENTE III, MD DATE: 11/04/19 0258 CC: SHAILA HERNANDEZ MD; TRENA LOMBARDI MD ~ [][place] [address] IMAGING REPORT Signed PATIENT: ENRIQUE MARS ACCOUNT: [id number] : 1990 LOCATION: ER AGE: 29 SEX: M EXAM STATUS: REG ER ORD. PHYSICIAN: SHAILA HERNANDEZ MD REASON: abdom pain, RECENT SURGERY PROCEDURE: ABDOMEN SUPINE & UPRIGHT CHEST PA LATERAL, ABDOMEN SUPINE UPRIGHT Technique: PA and lateral views of the chest were obtained. Clinical History: Abdominal pain and recent pneumonia Comparison: None. Findings: The heart and pulmonary vasculature appear within normal limits. The lungs are clear. The pleural margins are clear. The lungs are hyperinflated. Impression: No acute chest process is seen. End impression Two-view abdomen pelvis Upright and supine view There is air and stool scattered throughout the colon. There is a paucity of small bowel gas. There is no obvious free air. IMPRESSION: Nonobstructive bowel gas pattern. Electronically signed by: Cady Puente III, MD (11/04/2019 1:13 AM) [id number] DICTATED AND SIGNED BY: CADY PUENTE III, MD DATE: 11/04/19 0113 CC: SHAILA HERNANDEZ MD; TRENA LOMBARDI MD ~ Course & Med Decision Making: Course & Med Decision Making Pertinent Labs and Imaging studies reviewed. (See chart for details) Discussed presentation, testing and tx. plan Dr. Reyes. Options given to Pt. for admit,-transfer to [facility] and or even transfer back to [facility]. Other option is call for follow up in office in AM. Pt. elects to be discharged home. Pt. to be on clear fluid diet only. NO SOLIDS OR MILK PRODUCTS.. Must allow bowel rest. Pt. to take copy of disc of CT with him on any follow up. . Patient remained on a clear fluid diet only for the next 48 hours. No solids or milk products. Clear fluids only, allow bowel rest. Take Tylenol for pain. Call for follow-up appointment with Dr. Boyce OR Dr. Reyes in the morning. . Return if any concerns. Still have not received records of admission or his x-rays at [facility] at 0400 hrs. [] Impression: 1.Abdomen pain 2. S/P appendectomy on 10/28 2019. 3. History of chronic back pain [place] Disclaimer: [place] Disclaimer: This electronic medical record was generated, in whole or in part, using a voice recognition dictation system. Departure Departure: Disposition: HOME/RESIDENCE PRIOR TO ADM Condition: STABLE Referrals: TRENA LOMBARDI MD (PCP) [place] Disclaimer This chart was dictated in whole or in part using Voice Recognition software in a busy, high-work load, and often noisy Emergency Department environment. It may contain unintended and wholly unrecognized errors or omissions. SHAILA HERNANDEZ MD November 04, 2019 00:20
[2019-11-04] MEDS ORDERED: FAMOTIDINE 20 MG/2 ML VIAL IVP ONE (01:00)
[2019-11-04] MEDS ORDERED: ONDANSETRON PF 4 MG/2 ML VIAL. IVP ONE (01:00)
[2019-11-04] MEDS ORDERED: PANTOPRAZOLE IV 40 MG VIAL. IVP ONE (01:00)
[2019-11-04] MEDS ORDERED: IV RINGERS SOLUTION,LACTATED 1,000 ML IV SCH (01:00)
[2019-11-04] MEDS ORDERED: KETOROLAC 30 MG/ML VIAL. IVP ONE (01:00)
--- NOTE | 2019-11-04 01:07 | EKG ---
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
[2019-11-04 01:11] LABS: BASO # 0.1 x10^3/uL (0.0-0.2); BASO % 1 % (0-3); EOS # 0.2 x10^3/uL (0.0-0.7); EOS % 2 % (0-3); HEMATOCRIT 34.5 % (39.0-53.0); HEMOGLOBIN 11.5 g/dL (13.0-17.5); LYMPH % 23 % (24-48); MEAN CORPUSCULAR HEMOGLOBIN 30 pg (25-35); MEAN CORPUSCULAR HGB CONC 34 g/dL (31-37); MEAN CORPUSCULAR VOLUME 89 fL (79-100); MONO # 0.9 x10^3/uL (0.0-1.1); MONO % 10 % (0-9); NEUT # 5.3 x10^3uL (1.8-7.7); NEUT % 64 % (31-73); PLATELET COUNT 428 x10^3/uL (140-400); RED BLOOD COUNT 3.86 x10^6/uL (4.30-5.70); WHITE BLOOD COUNT 8.4 x10^3/uL (4.0-11.0)
[2019-11-04 01:16] LABS: BARBITURATES NEG (NEG); BENZODIAZEPINES NEG (NEG); CANNABINOIDS NEG (NEG); COCAINE NEG (NEG); METHADONE NEG (NEG); OPIATES NEG (NEG); PHENCYCLIDINE NEG (NEG)
--- NOTE | 2019-11-04 01:16 | RAD ---
CHEST PA LATERAL, ABDOMEN SUPINE UPRIGHT Technique: PA and lateral views of the chest were obtained. Clinical History: Abdominal pain and recent pneumonia Comparison: None. Findings: The heart and pulmonary vasculature appear within normal limits. The lungs are clear. The pleural margins are clear. The lungs are hyperinflated. Impression: No acute chest process is seen. End impression Two-view abdomen pelvis Upright and supine view There is air and stool scattered throughout the colon. There is a paucity of small bowel gas. There is no obvious free air. IMPRESSION: Nonobstructive bowel gas pattern. Electronically signed by: Isac Matos III, MD (11/04/2019 1:13 AM) [id number]
[2019-11-04 01:18] LABS: BACTERIA,URINE 0 /HPF (0-FEW); BILIRUBIN,URINE NEG (NEG); CLARITY,URINE CLEAR; COLOR,URINE YELLOW; GLUCOSE,URINE NEG (NEG); NITRITE,URINE NEG (NEG); RBC,URINE 0 /HPF (0-2); SQUAMOUS EPITHELIAL CELL,UR OCC /LPF; UROBILINOGEN,URINE 0.2 mg/dL (0.2 mg/dL); WBC,URINE OCC /HPF (0-4)
[2019-11-04 01:19] LABS: AMPHETAMINE/METHAMPHETAMINE NEG (NEG)
[2019-11-04] MEDS ORDERED: CONTRAST GIVEN MC PRN (01:30)
[2019-11-04 01:42] LABS: CALCIUM 8.8 mg/dL (8.5-10.1); CREATININE 0.7 mg/dL (0.7-1.3); GFR 131.5; POTASSIUM 3.8 mmol/L (3.5-5.1)
[2019-11-04 01:48] LABS: ALBUMIN 3.6 g/dL (3.4-5.0); DIRECT BILIRUBIN 0.1 mg/dL (0.0-0.2); TOTAL BILIRUBIN 0.5 mg/dL (0.2-1.0); TOTAL PROTEIN 7.5 g/dL (6.4-8.2)
[2019-11-04] MEDS ORDERED: IOHEXOL 240 MG/ML 50ML VIAL. PO ONE (02:00)
[2019-11-04] MEDS ORDERED: IOHEXOL 300 MG/ML 75 ML VIAL. IV ONE (02:00)
--- NOTE | 2019-11-04 03:01 | RAD ---
CT SCAN OF THE ABDOMEN AND PELVIS WITH IV CONTRAST. History: Comparison:None. Procedure: Contiguous axial images of the abdomen and pelvis were performed after the administration of 75 cc of Omni 300 IV contrast. Oral contrast: Yes. Findings: There is density with stranding along the paracolic gutter on the right and there is a small amount of dense fluid posteriorly in the pelvis. The curvilinear opacity posterior to the cecum is presumably a suture line from the appendectomy. The gallbladder is collapsed and not well evaluated. Liver: Unremarkable Spleen: Unremarkable Pancreas: Unremarkable Adrenal Glands: Unremarkable Kidneys: Unremarkable There is no mass or lymphadenopathy. There is no free air. There is no free fluid. The urinary bladder is partially collapsed. There is mild wall thickening. Impression: 1. Mild wall thickening of the urinary bladder is likely hypertrophy. 2. There is a small amount of blood in the pelvis posteriorly and there is a small amount of blood along the paracolic gutter on the right with mild surrounding inflammation. There is no focal abscess. PQRS Compliance Statement: One or more of the following individualized dose reduction techniques were utilized for this examination: 1. Automated exposure control 2. Adjustment of the mA and/or kV according to patient size 3. Use of iterative reconstruction technique Electronically signed by: Isac Matos III, MD (11/04/2019 2:58 AM) [id number]
[2019-11-04 04:35] VITALS: BP 113/78
[2019-11-04] MEDS ORDERED: ASPIRIN 325 MG TABLET PO ONE (04:45)
== END 2019-11-04 04:35 | disposition home or self-care (01) ==
LOC: ER 00:11
DX: R10.84 Generalized abdominal pain (principal); R11.0 Nausea; G89.29 Other chronic pain; Z90.89 Acquired absence of other organs
CPT/HCPCS: 36415; 71046; 74019; 74177; 80048; 80076; 80307; 81001; 82150; 82550; 83690; 84484; 85025; 85610; 85730; 93005; 96374; 96375; 99285; C9113; J1885; J2405; J3490; J7120; Q9966; Q9967